=== PATIENT | female | born 1950 | race Caucasian/White ===

== ENCOUNTER 2017-11-15 09:41 | Emergency (ER) | payer MEDICARE, BC ==
--- NOTE | 2017-11-15 10:08 | EDM.PDOC ---
ED HPI GENERAL MEDICAL PROBLEM - General Chief Complaint: General Stated Complaint: PAIN Time Seen by Provider: 11/15/17 10:08 Source of Information: Reports: Patient History Limitations: Reports: No Limitations - History of Present Illness INITIAL COMMENTS - FREE TEXT/NARRATIVE: pt arrived with generalized pain. This is worse in the rt shoulder and left knee and left wrist. This has been flared for about 2 weeks and has gotten progressively worse. She Is so uncomfortable that she is having difficulty getting out of bed and mbulating. She is having difficulty resting. Her Ra factors have come back neg Onset: Gradual, Other ( This has been going on for about 2 weeks. ) Duration: Day(s):, Getting Worse Location: Reports: Upper Extremity, Left, Upper Extremity, Right, Lower Extremity, Left Associated Symptoms: Reports: Weakness Generalized Pain Score (Numeric/FACES): 9 - Related Data Allergies Allergy/AdvReac Type Severity Reaction Status Date / Time nifedipine Allergy Swelling Verified 11/15/17 09:56 shellfish derived Allergy Vomiting Verified 11/15/17 09:56 codeine AdvReac Nausea and Verified 11/15/17 09:56 Vomiting erythromycin base AdvReac Nausea and Verified 11/15/17 09:56 [Erythromycin Base] Vomiting etodolac [From Lodine] AdvReac Nausea Verified 11/15/17 09:56 lisinopril AdvReac Cough Verified 11/15/17 09:56 shell Allergy Vomiting Uncoded 03/08/14 15:55 Home Meds: Home Meds Albuterol Sulfate [Proair Hfa] 2 inhalation INH Q4H PRN 09/15/13 [History] Allopurinol [Zyloprim] 300 mg PO DAILY 09/15/13 [History] Aspirin [Leonel Chewable Aspirin] 81 mg PO DAILY 09/15/13 [History] Cholecalciferol (Vitamin D3) [Vitamin D3] 1,000 units PO DAILY 09/15/13 [History ] Cyclobenzaprine [Flexeril] 10 mg PO TID PRN 09/15/13 [History] Gabapentin [Neurontin] 900 mg PO TID 09/15/13 [History] Loratadine 10 mg PO DAILY 09/15/13 [History] Meclizine [Antivert] 25 mg PO TID PRN 09/15/13 [History] Multivitamin with Minerals [Multiple Vitamin] 1 tab PO DAILY 09/15/13 [History] Rosuvastatin Calcium [Crestor] 40 mg PO BEDTIME 09/15/13 [History] Valsartan 320 mg PO DAILY 09/15/13 [History] Verapamil HCl [Verapamil Sr] 240 mg PO DAILY 09/15/13 [History] diphenhydrAMINE [Benadryl] 50 mg PO Q4H 09/15/13 [History] traMADol [Ultram] 50 mg PO Q6H PRN 09/15/13 [History] Acetaminophen 500 mg PO Q6H PRN 11/15/17 [History] metFORMIN [Glucophage] 1 tab PO BID 11/15/17 [History] Past Medical History HEENT History: Reports: Cataract, Impaired Vision Cardiovascular History: Reports: High Cholesterol, Hypertension Respiratory History: Reports: Other (See Below) Other Respiratory History: reactive airway disease Genitourinary History: Reports: Chronic Renal Insuffiency, Other (See Below) Other Genitourinary History: stage 3 kidney failure H[employer]PER[employer] History: Reports: Musculoskeletal History: Reports: Back Pain, Chronic, Osteoarthritis, Other ( See Below) Neurological History: Reports: Other (See Below) Other Neuro History: stenosis of spine Psychiatric History: Reports: Panic Attack Endocrine/Metabolic History: Reports: Diabetes, Type II, Obesity/BMI 30+ Dermatologic History: Reports: Cellulitis - Past Surgical History GI Surgical History: Reports: Cholecystectomy Female Surgical History: Reports: Hysterectomy Neurological Surgical History: Reports: Spinal Fusion, Other (See Below) Other Neurological Surgeries/Procedures: cervical fusion Musculoskeletal Surgical History: Reports: Arthroscopic Knee, Knee Replacement Social & Family History - Tobacco Use Smoking Status *Q: Never Smoker - Recreational Drug Use Recreational Drug Use: No ED ROS GENERAL - Review of Systems Review Of Systems: See Below Constitutional: Reports: Malaise, Weakness HEENT: Reports: No Symptoms Respiratory: Reports: No Symptoms Cardiovascular: Reports: No Symptoms Endocrine: Reports: No Symptoms GI/Abdominal: Reports: No Symptoms : Reports: No Symptoms Musculoskeletal: Reports: Other ( severe generalized pain) Skin: Reports: No Symptoms ED EXAM, GENERAL - Physical Exam Exam: See Below Free Text/Narrative:: Pt has severe pain in the left wrist, left knee and rt shoulder. She Has severe pain to the point that she is not resting and can bearly get out of bed. Exam Limited By: No Limitations General Appearance: Alert, Severe Distress, Other (pt is very anxious. ) Ears: Normal TMs Nose: Normal Inspection Throat/Mouth: Normal Inspection Head: Atraumatic Neck: Other (pt has alot of tenderness in the post cervical area. ) Respiratory/Chest: No Respiratory Distress Cardiovascular: Regular Rate, Rhythm GI/Abdominal: Soft, Non-Tender Rectal (Female) Exam: Deferred Back Exam: Normal Inspection Extremities: Other ( generalized joint pain) Neurological: Alert, Oriented, Normal Cognition Psychiatric: Anxious Course - Vital Signs Last Recorded V/S: Last Vital Signs Temp 37.1 C 11/15/17 09:47 Pulse 71 11/15/17 09:47 Resp 24 H 11/15/17 09:47 BP 107/56 L 11/15/17 09:47 Pulse Ox 100 11/15/17 09:47 - Orders/Labs/Meds Orders: Active Orders 24 hr Category Date Time Status CULTURE URINE [RM] Stat Lab 11/15/17 12:06 Ordered UA W/MICROSCOPIC [URIN] Urgent Lab 11/15/17 11:57 Ordered Labs: Laboratory Tests 11/15/17 11/15/17 11/15/17 Range/Units 10:45 10:45 10:45 WBC 10.6 (4.5-11.0) K/uL RBC 4.42 (3.30-5.50) M/uL Hgb 12.6 (12.0-15.0) g/dL Hct 39.4 (36.0-48.0) % MCV 89 (80-98) fL MCH 29 (27-31) pg MCHC 32 (32-36) % Plt Count 293 (150-400) K/uL Neut % (Auto) 76 H (36-66) % Lymph % (Auto) 16 L (24-44) % Kane % (Auto) 7 H (2-6) % Eos % (Auto) 0 L (2-4) % Baso % (Auto) 0 (0-1) % ESR 64 H (0-25) mm/hr Sodium 138 L (140-148) mmol/L Potassium 4.1 (3.6-5.2) mmol/L Chloride 101 (100-108) mmol/L Carbon Dioxide 25 (21-32) mmol/L Anion Gap 16.1 H (5.0-14.0) mmol/L BUN 15 (7-18) mg/dL Creatinine 1.0 (0.6-1.0) mg/dL Est Cr Clr Drug Dosing 45.78 mL/min Estimated GFR (MDRD) 55 L (>60) Glucose 141 H (74-106) mg/dL Calcium 9.7 (8.5-10.1) mg/dL Total Bilirubin 0.5 (0.2-1.0) mg/dL AST 14 L (15-37) U/L ALT 14 (12-78) U/L Alkaline Phosphatase 105 (46-116) U/L C-Reactive Protein (0.0-0.3) mg/dL Total Protein 6.7 (6.4-8.2) g/dL Albumin 3.0 L (3.4-5.0) g/dL Globulin 3.7 H (2.3-3.5) g/dL Albumin/Globulin Ratio 0.8 L (1.2-2.2) Urine Color Urine Appearance Urine pH (4.5-8.0) Ur Specific Sawyer (1.008-1.030) Urine Protein (NEGATIVE) mg/dL Urine Glucose (UA) (NEGATIVE) mg/dL Urine Ketones (NEGATIVE) mg/dL Urine Occult Blood (NEGATIVE) Urine Nitrite (NEGATIVE) Urine Bilirubin (NEGATIVE) Urine Urobilinogen (NORMAL) mg/dL Ur Leukocyte Esterase (NEGATIVE) Urine RBC (0-5) Urine WBC (0-5) Ur Epithelial Cells Amorphous Sediment Urine Bacteria Urine Mucus 11/15/17 11/15/17 Range/Units 10:45 11:57 WBC (4.5-11.0) K/uL RBC (3.30-5.50) M/uL Hgb (12.0-15.0) g/dL Hct (36.0-48.0) % MCV (80-98) fL MCH (27-31) pg MCHC (32-36) % Plt Count (150-400) K/uL Neut % (Auto) (36-66) % Lymph % (Auto) (24-44) % Kane % (Auto) (2-6) % Eos % (Auto) (2-4) % Baso % (Auto) (0-1) % ESR (0-25) mm/hr Sodium (140-148) mmol/L Potassium (3.6-5.2) mmol/L Chloride (100-108) mmol/L Carbon Dioxide (21-32) mmol/L Anion Gap (5.0-14.0) mmol/L BUN (7-18) mg/dL Creatinine (0.6-1.0) mg/dL Est Cr Clr Drug Dosing mL/min Estimated GFR (MDRD) (>60) Glucose (74-106) mg/dL Calcium (8.5-10.1) mg/dL Total Bilirubin (0.2-1.0) mg/dL AST (15-37) U/L ALT (12-78) U/L Alkaline Phosphatase (46-116) U/L C-Reactive Protein 3.20 H (0.0-0.3) mg/dL Total Protein (6.4-8.2) g/dL Albumin (3.4-5.0) g/dL Globulin (2.3-3.5) g/dL Albumin/Globulin Ratio (1.2-2.2) Urine Color Yellow Urine Appearance Cloudy Urine pH 7.0 (4.5-8.0) Ur Specific Sawyer 1.010 (1.008-1.030) Urine Protein Negative (NEGATIVE) mg/dL Urine Glucose (UA) Normal (NEGATIVE) mg/dL Urine Ketones Negative (NEGATIVE) mg/dL Urine Occult Blood Large (NEGATIVE) Urine Nitrite Negative (NEGATIVE) Urine Bilirubin Small (NEGATIVE) Urine Urobilinogen 1 (NORMAL) mg/dL Ur Leukocyte Esterase Moderate (NEGATIVE) Urine RBC Semi-packed H (0-5) Urine WBC 5-10 H (0-5) Ur Epithelial Cells Rare Amorphous Sediment Not seen Urine Bacteria Rare Urine Mucus Few Meds: Medications Discontinued Medications Generic Name Dose Route Start Last Admin Trade Name Freq PRN Reason Stop Dose Admin Lorazepam 0.5 mg 11/15/17 11:40 11/15/17 11:56 Ativan PO 11/15/17 11:41 0.5 mg ONETIME ONE Administration Morphine Sulfate 2 mg 11/15/17 10:31 11/15/17 10:48 Morphine IM 11/15/17 10:32 2 mg ONETIME ONE Administration Morphine Sulfate 2.5 mg 11/15/17 11:44 11/15/17 12:13 Morphine 10 Mg/0.5 Ml Oral Syringe PO 11/15/17 11:45 2.5 mg ONETIME ONE Administration Ondansetron HCl 4 mg 11/15/17 10:30 11/15/17 10:47 Zofran Odt PO 11/15/17 10:31 4 mg ONETIME ONE Administration Triamcinolone Acetonide 60 mg 11/15/17 11:31 11/15/17 11:57 Kenalog-40 INJECT 11/15/17 11:32 60 mg ASDIRECTED ONE Administration - Re-Assessments/Exams Free Text/Narrative Re-Assessment/Exam: 11/15/17 11:37 pt has a sed rate of 64. Her crp is also elvated. Her other labs look quite good. She did get morpine im and she does seem alot more relaxed. Ativan .5 was given 11/15/17 12:15 Pt had some rbcs in the urine but that was felt to be from the cath. A culture was setup. She was given 2.5 mg of morphine po prior to leaving. She was given kenalog 60mg im. She has an upcoming rheumatological appt on thu. Departure - Departure Time of Disposition: 12:18 Disposition: Home, Self-Care 01 Condition: Fair Clinical Impression: Acute joint pain, Degenerative arthritis, Elevated sed rate - Discharge Information Referrals: Villa Oviedo MD [Primary Care Provider] - Forms: ED Department Discharge Care Plan Goals: keep appt with the air defense specialist. moist heat to the joints involved, cont same meds, morphine liquid 10mg/.5 ml. 2.5 to 5mg q6h prn for pain 4 day supply - My Orders Last 24 Hours: My Active Orders 11/15/17 11:57 UA W/MICROSCOPIC [URIN] Urgent 11/15/17 12:06 CULTURE URINE [RM] Stat - Assessment/Plan Last 24 Hours: My Active Orders 11/15/17 11:57 UA W/MICROSCOPIC [URIN] Urgent 11/15/17 12:06 CULTURE URINE [RM] Stat
[2017-11-15] MEDS ORDERED: Ondansetron 4 MG Tab.DIS PO ONE (10:30)
[2017-11-15] MEDS ORDERED: Morphine 2 MG/ML Syringe IM ONE (10:31)
[2017-11-15] MEDS ORDERED: Triamcinolone Acetonide 40 MG/ML 1 ML MDV INJECT ONE (11:31)
[2017-11-15] MEDS ORDERED: LORazepam 0.5 MG Tab PO ONE (11:40)
[2017-11-15] MEDS ORDERED: Morphine 10 MG/0.5 ML Oral Syringe PO ONE (11:44)
== END 2017-11-15 12:50 | disposition home or self-care (01) ==
LOC: JP.ED 09:41
DX: M19.032 Primary osteoarthritis, left wrist (principal); M17.12 Unilateral primary osteoarthritis, left knee; M19.011 Primary osteoarthritis, right shoulder; N18.3 Chronic kidney disease, stage 3 (moderate); R70.0 Elevated erythrocyte sedimentation rate; I12.9 Hypertensive chronic kidney disease with stage 1 through stage 4 chronic kidney disease, or unspecified chronic kidney disease; E78.00 Pure hypercholesterolemia, unspecified; J45.909 Unspecified asthma, uncomplicated; E66.9 Obesity, unspecified; Z88.5 Allergy status to narcotic agent; Z88.1 Allergy status to other antibiotic agents; Z88.8 Allergy status to other drugs, medicaments and biological substances; Z79.899 Other long term (current) drug therapy; Z79.84 Long term (current) use of oral hypoglycemic drugs; Z79.82 Long term (current) use of aspirin; Z68.42 Body mass index [BMI] 45.0-49.9, adult
CPT/HCPCS: 36415; 80053; 81001; 85025; 85651; 86140; 87086; 96372; 99283; A9270; J2270; J3301

== ENCOUNTER 2024-08-09 23:34 | Emergency (ER) | payer MEDICARE ==
[2024-08-09] MEDS ORDERED: Naloxone 0.4 MG/ML SDV IVPUSH PRN (23:54)
[2024-08-10] MEDS: traMADol 50 MG Tab PO ONE (00:09)
[2024-08-10] MEDS: Morphine 4 MG/ML Syringe IVPUSH ONE (00:11)
[2024-08-10 00:12] LABS: BASOPHILS ABSOLUTE AUTO 0.06 K/uL (0.00-0.10); EOSINOPHILS ABSOLUTE AUTO 0.03 K/uL (0.00-0.40); EOSINOPHILS PERCENT AUTO 0.5 % (0.0-5.4); HEMATOCRIT 43.5 % (34.3-46.0); HEMOGLOBIN 14.6 g/dL (11.2-15.5); IMMATURE GRAN PERCENT AUTO 0.3 % (0.0-0.7); LYMPHOCYTES ABSOLUTE AUTO 1.19 K/uL (0.8-3.3); LYMPHOCYTES PERCENT AUTO 20.2 % (11.4-47.7); MEAN CORPUSCULAR HEMOGLOBIN 29.7 pg (31.6-35.5); MEAN CORPUSCULAR HGB CONC 33.6 g/dL (31.6-35.5); MEAN CORPUSCULAR VOLUME 88.6 fL (81.4-99.0); MONOCYTES ABSOLUTE AUTO 0.66 K/uL (0.20-0.90); MONOCYTES PERCENT AUTO 11.2 % (3.3-12.6); NEUTROPHILS ABSOLUTE AUTO 3.92 K/uL (1.0-7.6); NEUTROPHILS PERCENT AUTO 66.8 % (40.0-78.1); PLATELET COUNT,PLT 110 K/uL (130-375); RED BLOOD CELL COUNT 4.91 M/uL (3.77-5.24); WHITE BLOOD CELL COUNT,WBC 5.9 K/uL (3.2-11.0)
[2024-08-10 00:13] LABS: IMMATURE GRAN ABSOLUTE AUTO 0.02 K/uL (0.00-0.23)
== END 2024-08-10 02:31 | disposition home or self-care (01) ==
LOC: JP.ED 23:34
DX: S86.912A Strain of unspecified muscle(s) and tendon(s) at lower leg level, left leg, initial encounter (principal); I12.9 Hypertensive chronic kidney disease with stage 1 through stage 4 chronic kidney disease, or unspecified chronic kidney disease; N18.9 Chronic kidney disease, unspecified; E78.00 Pure hypercholesterolemia, unspecified; J45.909 Unspecified asthma, uncomplicated; M19.90 Unspecified osteoarthritis, unspecified site; E11.22 Type 2 diabetes mellitus with diabetic chronic kidney disease; E66.9 Obesity, unspecified; Z68.37 Body mass index [BMI] 37.0-37.9, adult; Z90.49 Acquired absence of other specified parts of digestive tract; Z90.710 Acquired absence of both cervix and uterus; Z96.659 Presence of unspecified artificial knee joint; Z88.5 Allergy status to narcotic agent; Z88.1 Allergy status to other antibiotic agents; Z88.8 Allergy status to other drugs, medicaments and biological substances; Z91.013 Allergy to seafood; Z91.048 Other nonmedicinal substance allergy status; Z79.51 Long term (current) use of inhaled steroids; Z79.82 Long term (current) use of aspirin; Z79.84 Long term (current) use of oral hypoglycemic drugs; Z79.899 Other long term (current) drug therapy; W01.198A Fall on same level from slipping, tripping and stumbling with subsequent striking against other object, initial encounter
CPT/HCPCS: 36415; 70450; 72125; 73502; 73560; 73630; 76377; 85025; 99284; A9270